=== PATIENT | female | born 1945 | race Two or more races ===

== ENCOUNTER → 2016-09-10 | Outpatient (CLI) | payer MEDICARE, MEDICAID ==
--- NOTE | 2016-09-10 14:33 | Diagnostic Imaging Report ---
Indication: COUGH Technique: PA and lateral views of the chest. Findings: Comparison: None Linear density right upper lung with apparent associated volume loss of right upper lobe. Left lung clear. The bones and extra pulmonary soft tissues, cardiomediastinal silhouette, pulmonary vasculature, and pleural surfaces are unremarkable. IMPRESSION: Right upper lobe volume loss with upward retraction of right minor fissure, nonspecific, acuity indeterminate. Central bronchial obstructing lesion not excludable. Consider bronchoscopy for further evaluation. Otherwise negative PA and lateral chest radiographs
== END | disposition home or self-care (01) ==
LOC: RAD 13:45
DX: R05 Cough (principal)
CPT/HCPCS: 71020